=== PATIENT | female | born 1960 | race Hispanic/Latino ===

== ENCOUNTER → 2023-05-28 | Outpatient (CLI) | payer OTHER | END | disposition home or self-care (01) | LOC: RAH 08:49 | PROVIDERS: ATTEND Internal Medicine Gastroenterology | DX: R93.3 Abnormal findings on diagnostic imaging of other parts of digestive tract (principal); Z85.038 Personal history of other malignant neoplasm of large intestine | CPT/HCPCS: 74270 ==